=== PATIENT | male | born 1965 | race Caucasian/White ===

== ENCOUNTER 2023-08-08 07:09 | Outpatient (OUT) | payer OTHER, SELFPAY ==
[2023-08-08 08:03] LABS: Chol HDL Ratio 4.5; Cholesterol 202 mg/dL (<=200); HDL Cholesterol 45 mg/dL (40-60); Triglycerides 189 mg/dL (<=150); VLDL CHOLESTEROL 37.8 mg/dL
== END 2023-08-08 07:10 | disposition home or self-care (01) ==
LOC: LAB 07:09
PROVIDERS: PCP Family Medicine; Visit Provider Family Medicine
DX: Z79.899 Other long term (current) drug therapy (principal); E78.2 Mixed hyperlipidemia; Z83.49 Family history of other endocrine, nutritional and metabolic diseases
CPT/HCPCS: 36415; 80061

== ENCOUNTER 2023-11-18 15:25 | Outpatient (OUT) | payer OTHER, SELFPAY ==
[2023-11-18 16:17] LABS: Alanine Aminotransferase 49 U/L (16-63); Albumin Globulin Ratio 0.8; Albumin Level 3.8 g/dL (3.4-5.0); Alkaline Phosphatase 63 U/L (46-116); Aspartate Amino Transferase 23 U/L (15-37); Bilirubin Direct 0.2 mg/dL (0.0-0.2); Bilirubin Total 0.6 mg/dL (0.2-1.0); Chol HDL Ratio 2.8; Cholesterol 151 mg/dL (<=200); Globulin 4.5 g/dL; HDL Cholesterol 54 mg/dL (40-60); Total Protein 8.3 g/dL (6.4-8.2); Triglycerides 80 mg/dL (<=150)
== END 2023-11-18 15:26 | disposition home or self-care (01) ==
LOC: LAB 15:26
PROVIDERS: PCP Family Medicine; Visit Provider Family Medicine
DX: E78.2 Mixed hyperlipidemia (principal); Z83.49 Family history of other endocrine, nutritional and metabolic diseases; Z79.899 Other long term (current) drug therapy
CPT/HCPCS: 36415; 80061; 80076

== ENCOUNTER 2024-03-11 15:31 | Outpatient (OUT) | payer OTHER, SELFPAY ==
[2024-03-11 15:47] LABS: Basophils Absolute Auto 0.1 10^3/uL (0.0-0.1); Basophils Percent Auto 1.5 % (0.2-2.0); Eosinophils Absolute Auto 0.2 10^3/uL (0.0-0.7); Eosinophils Percent Auto 2.9 % (0.9-7.0); Hemoglobin 14.1 g/dL (14.0-18.0); Lymphocytes Absolute Auto 1.1 10^3/uL (1.2-3.8); Lymphocytes Percent Auto 22.1 % (20.5-60.0); Mean Corpuscular HGB Conc 34.4 g/dL (29.9-35.2); Mean Corpuscular Hemoglobin 31.3 pg (25.9-34.0); Mean Corpuscular Volume 90.9 fL (80.0-94.0); Mean Platelet Volume 10.3 fL (9.5-13.5); Monocytes Absolute Auto 0.6 10^3/uL (0.3-0.8); Monocytes Percent Auto 12.4 % (1.7-12.0); Neutrophils Absolute Auto 3.2 10^3/uL (1.4-6.5); Neutrophils Percent Auto 61.1 % (43.0-75.0); Platelet Count 226 10^3/uL (150-450); Red Blood Count 4.51 10^6/uL (4.70-6.10); White Blood Count 5.2 10^3/uL (4.0-11.0)
[2024-03-11 16:43] LABS: Alanine Aminotransferase 33 U/L (16-63); Albumin Level 4.1 g/dL (3.4-5.0); Alkaline Phosphatase 59 U/L (46-116); Anion Gap 12.3; Aspartate Amino Transferase 21 U/L (15-37); BUN Creatinine Ratio 16.4; Bilirubin Total 0.9 mg/dL (0.2-1.0); Calcium 9.4 mg/dL (8.5-10.1); Carbon Dioxide 26.5 mmol/L (21.0-32.0); Chloride 101 mmol/L (98-107); Chol HDL Ratio 2.4; Cholesterol 134 mg/dL (<=200); Estimated GFR (African America >60 (>=60); Estimated GFR (Non-African Ame >60 (>=60); Glucose 87 mg/dL (74-106); HDL Cholesterol 57 mg/dL (40-60); LDL Cholesterol Calculated 65.8 mg/dL; Potassium 3.8 mmol/L (3.5-5.1); Sodium 136 mmol/L (136-145); Total Protein 8.1 g/dL (6.4-8.2); Triglycerides 56 mg/dL (<=150); VLDL CHOLESTEROL 11.2 mg/dL
[2024-03-11 17:00] LABS: Prostate Specific Antigen Scrn 0.27 ng/mL (<=4.00)
== END 2024-03-11 15:32 | disposition home or self-care (01) ==
LOC: LAB 15:31
PROVIDERS: PCP Family Medicine; Visit Provider Family Medicine
DX: Z00.00 Encounter for general adult medical examination without abnormal findings (principal); Z12.5 Encounter for screening for malignant neoplasm of prostate
CPT/HCPCS: 36415; 80053; 80061; 85025; G0103

== ENCOUNTER 2025-04-06 07:31 | Outpatient (OUT) | payer OTHER, SELFPAY ==
--- OUTSIDE RECORDS SUMMARY | 2025-03-31 15:15 | XMS_ITS | Encounter Summary ---
Author Organization [facility] Address [address] [facility] [place] [address] Care Team Providers Care Supervisor Properties Name Role Phone Tyson Breen Primary Care Provider [phone] Reason for Visit * Reason Comments Foreign Body in Eye Encounter Details Date Type Department Care Team (Late st Contact Info) Description 03/31/2025 3:15 PM EDT Office Visit [facility] [address] [place] [id number] Thomas España DO [address] [place] [address] Foreign body of left cornea, initial encounter (Primary Dx) Social History Tobacco Use Types Packs/Day Years Used Date Smoking Tobacco: Former Cigarettes 1 15 0 10/28/1989 - 10/28/2003 Smokeless Tobacco: Never Alcohol Use Standard Drinks/Week Comments Yes 6 (1 standard drink = 0.6 oz pur e alcohol) Sex and Gender Information Value Date Recorded Sex Assigned at Not on file Legal Sex Male 7:20 PM EDT Gender Identity Not on file Sexual Orientation Not on file documented as of this encounter Progress Notes * Thomas España DO - 03/31/2025 3:15 PM EDT Images from the original note were not included. Assessment/Plan Diagnoses and all orders for this visit: Foreign body of left cornea, initial encounter - This appears to have worked its way out since seen yesterday evening by Dr. Leonardo. He showed miladys photo of this and it appears to have been an eyelash with perhaps a mucus strand holding it to the cornea. Pt reassured. Advised tears prn. documented in this encounter Plan of Treatment Not on file documented as of this encounter Visit Diagnoses Diagnosis Foreign body of left cornea, initial encounter- Primary documented in this encounter Care Teams Supervisor Properties Relationship Specialty Start Date End Date Tyson Breen [address] [place] [address] PCP - General 03/31/23 documented as of this encounter
--- OUTSIDE RECORDS SUMMARY | 2025-04-06 07:35 | XMS_ITS | Encounter Summary ---
Author Organization [facility] Address [address] [facility] [place] [address] Care Team Providers Care Evp Name Role Phone Tyson Breen Primary Care Provider [phone] Encounter Details Date Type Department Care Team (Late st Contact Info) Description 03/31/2025 Bamboo flowsheet [facility] [address] [place] [phone] Thomas España, DO [address] [place] [address] Social History Tobacco Use Types Packs/Day Years [...] on file documented as of this encounter Plan of Treatment Not on file documented as of this encounter Visit Diagnoses Not on filedocumented in this encounter Care Teams Evp Relationship Specialty Start Date End Date Tyson Breen [address] [place] [address] PCP - General 03/31/23 documented as of this encounter
--- OUTSIDE RECORDS SUMMARY | 2025-04-06 07:35 | XMS_ITS | Encounter Summary ---
Author Organization [facility] Address [address] [facility] [place] [address] Care Team Providers Care Plating Tank Operator Name Role Phone Tyson Breen Primary Care Provider [phone] Encounter Details Date Type Department Care Team (Late st Contact Info) Description 06/04/2023 Abstract [facility] [address] [facility] [place] [address] Sheila Ny, [facility] [address] [place] [address] Social History Tobacco Use Types Packs/Day Years [...] on file Sexual Orientation Not on file COVID-19 Exposure Response Date Recorded In the last 10 days, have yo u been in contact with someone who was confirmed or suspected to have Coronavirus/COVID-19? No / Unsure 05/19/2023 11:55 AM EDT documented as of this encounter Plan of Treatment Not on file documented as of this encounter Visit Diagnoses Not on filedocumented in this encounter Care Teams Plating Tank Operator Relationship Specialty Start Date End Date Tyson Breen [address] [place] [address] PCP - General 03/31/23 documented as of this encounter
--- OUTSIDE RECORDS SUMMARY | 2025-04-06 07:35 | XMS_ITS | Clinical Summary ---
Author Organization [facility] Address [address] [place] [address] Care Team Providers Care Train Master Name Role Phone Tyson Breen Primary Care Provider Allergies No known active allergies Medications amLODIPine (Norvasc) 5 MG tablet 03/06/2025 Active ofloxacin (Ocuflox) 0.3 % ophthalmic solution 03/30/2025 Active rosuvastatin (Crestor) 10 MG tablet 01/03/2025 Active Active Problems No known active problems Encounters Date Type Department Care Team Description 03/31/2025 3:15 PM EDT Office Visit [facility] [address] [place] [phone] Thomas España, DO Foreign body of left cornea, initial encounter (Primary Dx) 03/31/2025 Bamboo flowsheet [facility] [address] [place] [phone] Thomas España, 03/31/2025 Travel 03/04/2025 Telephone [facility] [address] [facility] [place] [phone] Jayashree Armstrong MA 01/07/2025 Telephone [facility] [address] [facility] [place] [phone] Jayashree Armstrong MA 01/04/2025 3:45 PM EDT Clinical Support [facility] [address] [facility] [place] [address] Sheila Ny, CCC-A Sensorineural hearing loss, bilateral (Primary Dx) 01/04/2025 Telephone [facility] [address] [facility] [place] [address] Kanwal Campos MA from Last 3 Months Immunizations Immunization Administration Dates Next Due Moderna Bivalent Booster Vaccination 09/15/2022 Zoster, Recombinant 05/25/2020,12/29/2019 Family History Medical History Relation Name Comments Cancer Father Derek lau Heart failure Father Derek lau Cancer Mother Gabby lau Stroke Mother Gabby lau Thyroid disease Mother Gabby lau Relation Name Status Comments Father Derek lau Mother Gabby lau Social History Tobacco Use Types Packs/Day Years Used Date Smoking Tobacco: Former Cigarettes 1 15 0 10/28/1989 - 10/28/2003 Smokeless Tobacco: Never Tobacco Cessation:Counseling Given: Not Answered Alcohol Use Standard Drinks/Week Comments Yes 6 (1 standard drink = 0.6 oz pur e alcohol) Sex and Gender Information Value Date Recorded Sex Assigned at Not on file Legal Sex Male 7:20 PM EDT Gender Identity Not on file Sexual Orientation Not on file Last Filed Vital Signs Vital Sign Reading Time Taken Comments Blood Pressure 143/98 04/03/2023 3:06 PM EDT Pulse - - Temperature - - Respiratory Rate - - Oxygen Saturation - - Inhaled Oxygen Concentration - - Weight 101 kg (222 lb) 04/03/2023 3:06 PM EDT Height 177.8 cm (5' 10 ) 04/03/2023 3:06 PM EDT Body Mass Index 31.85 04/03/2023 3:06 PM EDT Plan of Treatment Health Maintenance Due Date Last Done Comments CT Colonography 1966 Colonoscopy 1966 Colorectal Cancer Screening 1966 FIT-DNA 1966 FIT 1966 FOBT 1966 Sigmoidoscopy 1966 Influenza Vaccine Completed 09/10/2024 Insurance [employer] Care Teams Train Master Relationship Specialty Start Date End Date Tyson Breen [address] [place] [address] PCP - General 03/31/23
--- OUTSIDE RECORDS SUMMARY | 2025-04-06 07:35 | XMS_ITS | Encounter Summary ---
Author Organization [facility] Address [address] [facility] [place] [address] Care Team Providers Care Manager Furniture Name Role Phone Tyson Breen Primary Care Provider [phone] Encounter Details Date Type Department Care Team (Late st Contact Info) Description 06/04/2023 Abstract [facility] [address] [facility] [address] Sheila Ny, [facility] [address] [place] [address] Social History Tobacco Use Types Packs/Day Years [...] on filedocumented in this encounter Care Teams Manager Furniture Relationship Specialty Start Date End Date Tyson Breen [address] [place] [address] PCP - General 03/31/23 documented as of this encounter
--- OUTSIDE RECORDS SUMMARY | 2025-04-06 07:35 | XMS_ITS | Encounter Summary ---
Author Organization [facility] Address [address] [facility] [place] [address] Care Team Providers Care Custom Leather Products Maker Name Role Phone Tyson Breen Primary Care Provider [phone] Encounter Details Date Type Department Care Team (Late st Contact Info) Description 05/20/2023 Abstract [facility] [address] [facility] [place] [address] Sheila Ny, [facility] [address] [place] [address] Social History Tobacco Use Types Packs/Day Years [...] on filedocumented in this encounter Care Teams Custom Leather Products Maker Relationship Specialty Start Date End Date Tyson Breen [address] [place] [address] PCP - General 03/31/23 documented as of this encounter
--- OUTSIDE RECORDS SUMMARY | 2025-04-06 07:36 | XMS_ITS | CCD ---
Author Organization [facility] Inform ion Partnership [facility] Care Team Providers Care Sheriff'S Detective Name Role Phone MARICARMEN, DR PEREZ Attending Unavailable BUNTING, DR PEREZ Consulting Unavailable BUNTING, DR PEREZ Primary Care Unavailable BUNTING, DR PEREZ Admitting Unavailable Bunting, Chris Luna Primary Care Provider SHEILA [place] Attending Unavailable CLARA NG Attending Unavailable Medications Current Medications Medication Drug Class(es) Dates Sig (Normalized) Sig (Original) amLODIPine 5 mg oral tablet (1 source) Dihydropyridine Calcium Channel Suleiman Start: 03-06-2025 amLODIPine (Norvasc) 5 MG tablet 03/06/2025 Active ofloxacin 3 mg/ml ophthalmic solution (1 source) Quinolone Antimicrobial Start: 03-30-2025 ofloxacin (Ocuflox) 0.3 % ophthalmic solution 03/30/2025 Active rosuvastatin calcium 10 mg oral tablet (1 source) HMG-CoA Reductase Inhibitor Start: 01-03-2025 rosuvastatin (Crestor) 10 MG tablet 01/03/2025 Active Problems Problem Classification Problem Date Documented Date Episodic/Chronic Other ear and sense organ disorders (3 sources) Sensorineural hearing loss, bilateral; Translations: [Sensorineural hearing loss, bilateral] 08-28-2024 Chronic Other injuries and conditions due to external causes (1 source) Foreign body in left cornea; Translations: [Foreign body in cornea, left eye, initial encounter] 03-31-2025 Episodic Other non-traumatic joint disorders (1 source) Pain in unspecified joint; Translations: [PAIN IN UNSPECIFIED JOINT] Onset: 03-12-2023 Episodic Other screening for suspected conditions (not mental disorders or infectious disease) (1 source) Encounter for screening for malignant neoplasm of prostate; Translations: [ENC SCREEN MALIG NEOPLASM PROSTATE] Onset: 03-12-2023 Episodic Results Test Name Value Interpretation Reference Range Facil ity CBC AUTO DIFFon 01-10-2023 BASO # 0.1 103/ul Normal 0.0-0.1 [facility] Comment on above: Performed By: #### C BC #### [facility] [address] [address] [address] Chris Beck Basophils/100 WBC (Bld) 1.7 % Normal 0.2-2.0 [facility] Comment on above: Performed By: #### C BC #### [facility] [address] [address] [address] Chris Beck EO # 0.2 103/ul Normal 0.0-0.7 [facility] Comment on above: Performed By: #### C BC #### [facility] [address] [place] [address] Dr. Chris Beck Eosinophils/100 WBC (Bld) 3.8 % Normal 0.9-7.0 [facility] Comment on above: Performed By: #### C BC #### [facility] [address] [address] [address] Chris Beck Erythrocyte distribution width (RBC) [Ratio] 13.2 % Normal 11.0-15.0 [facility] Comment on above: Performed By: #### C BC #### [facility] [address] [place] [address] Dr. Chris Beck Hematocrit (Bld) [Volume fraction] 46.2 % Normal 42.0-54.0 [facility] Comment on above: Performed By: #### C BC #### [facility] [address] [address] [address] Chris Beck Hemoglobin (Bld) [Mass/Vol] 15.6 g/dL Normal 14.0-18.0 [facility] Comment on above: Performed By: #### C BC #### [facility] [address] [place] [address] Dr. Chris Beck IG # 0.01 10e3/ul Normal 0.00-0.03 [facility] Comment on above: Performed By: #### C BC #### [facility] [address] [place] [address] Dr. Chris Beck IG % 0.2 % Normal 0.0-0.5 [facility] Comment on above: Performed By: #### C BC #### [facility] [address] [place] [address] Dr. Chris Beck LYMPH # 1.2 103/ul Normal 1.2-3.8 [facility] Comment on above: Performed By: #### C BC #### [facility] [address] [place] [address] Dr. Chris Beck Lymphocytes/100 WBC (Bld) 22.9 % Normal 20.5-60.0 [facility] Comment on above: Performed By: #### C BC #### [facility] [address] [place] [address] Dr. Chris Beck MANUAL DIFF REQ NO Normal [facility] Comment on above: Performed By: #### C BC #### [facility] [address] [place] [address] Dr. Chris Beck MCH (RBC) [Entitic mass] 31.5 pg Normal 25.9-34.0 [facility] Comment on above: Performed By: #### C BC #### [facility] [address] [place] [address] Dr. Chris Beck MCHC (RBC) [Mass/Vol] 33.8 g/dL Normal 29.9-35.2 [facility] Comment on above: Performed By: #### C BC #### [facility] [address] [place] [address] Dr. Chris Beck MCV (RBC) [Entitic vol] 93.3 fL Normal 80.0-94.0 [facility] Comment on above: Performed By: #### C BC #### [facility] [address] [place] [address] Dr. Chris Beck MONO # 0.6 103/ul Normal 0.3-0.8 [facility] Comment on above: Performed By: #### C BC #### [facility] [address] [place] [address] Dr. Chris Beck Monocytes/100 WBC (Bld) 11.5 % Normal 1.7-12.0 [facility] Comment on above: Performed By: #### C BC #### [facility] [address] [place] [address] Dr. Chris Beck NEUT # 3.2 103/ul Normal 1.4-6.5 [facility] Comment on above: Performed By: #### C BC #### [facility] [address] [place] [address] Dr. Chris Beck Neutrophils/100 WBC (Bld) 59.9 % Normal 43.0-75.0 [facility] Comment on above: Performed By: #### C BC #### [facility] [address] [place] [address] Dr. Chris Beck Platelet mean volume (Bld) [Entitic vol] 11.1 fL Normal 9.5-13.5 [facility] Comment on above: Performed By: #### C BC #### [facility] [address] [place] [address] Dr. Chris Beck PLT 200 103/ul Normal 150-450 [facility] Comment on above: Performed By: #### C BC #### [facility] [address] [place] [address] Dr. Chris Beck RBC 4.95 106/ul Normal 4.70-6.10 [facility] Comment on above: Performed By: #### C BC #### [facility] [address] [place] [address] Dr. Chris Beck WBC 5.3 103/ul Normal 4.0-11.0 [facility] Comment on above: Performed By: #### C BC #### [facility] [address] [place] [address] Dr. Chris Beck FREE T4on 01-10-2023 Free T4 [Mass/Vol] 0.99 ng/dL Normal 0.76-1.46 [facility] Comment on above: Performed By: #### F T4, PSASC #### [facility] [address] [place], [place] [id number] Dr. Chris Beck LIPID PROFILEon 01-10-2023 CHOL-HDL RATIO NORM SEE BELOW Normal [facility] Comment on above: Result Comment: 3.3 - 4.4 LOW RISK 4.4 - 7.1 AVERAGE RISK 7.1 - 11.0 MODERATE RISK >11.0 HIGH RISK Performed By: #### T SH, CMP, LIPID #### [facility] [address] [address] [address] Chris Beck Cholesterol [Mass/Vol] 217 mg/dL Critically high <=200 [facility] Comment on above: Performed By: #### T SH, CMP, LIPID #### [facility] [address] [place] [address] Dr. Chris Beck Cholesterol in HDL [Mass/Vol] 48 mg/dL Normal 40-60 [facility] Comment on above: Performed By: #### T SH, CMP, LIPID #### [facility] [address] [place] [address] Dr. Chris Beck Cholesterol in LDL [Mass/Vol] 156.4 mg/dL Normal [facility] Comment on above: Performed By: #### T SH, CMP, LIPID #### [facility] [address] [place] [address] Dr. Chris Beck Cholesterol.total/C holesterol in HDL [Mass ratio] 4.5 {ratio} Normal [facility] Comment on above: Performed By: #### T SH, CMP, LIPID #### [facility] [address] [place] [address] Dr. Chris Beck HDL NORMAL > or = 60 mg/dl - LO W CARDIOVASCULAR RISK <40 mg/dl - HIGH CARDIOVASCULAR RISK Normal [facility] Comment on above: Performed By: #### T SH, CMP, LIPID #### [facility] [address] [place] [address] Dr. Chris Beck LDL CALC NORMAL SEE BELOW Normal [facility] Comment on above: Result Comment: <100 mg/dl OPTIMAL 100 - 129 mg/dl NEAR OR ABOVE OPTIMAL 130 - 159 mg/dl BORDERLINE HIGH 160 - 189 mg/dl HIGH >190 mg/dl VERY HIGH Performed By: #### T SH, CMP, LIPID #### [facility] [address] [address] [address] Chris Beck Triglyceride [Mass/Vol] 63 mg/dL Normal <=150 [facility] Comment on above: Performed By: #### T SH, CMP, LIPID #### [facility] [address] [address] [address] Chris Beck VLDL CALC 12.6 mg/dL Normal [facility] Comment on above: Performed By: #### T SH, CMP, LIPID #### [facility] [address] [address] [address] Chris Beck PROF 14(COMP METB)on 023 Albumin [Mass/Vol] 4.0 g/dL Normal 3.4-5.0 [facility] Comment on above: Performed By: #### T SH, CMP, LIPID #### [facility] [address] [address] [address] Chris Beck Albumin/Globulin [Mass ratio] 0.9 {ratio} Normal [facility] Comment on above: Performed By: #### T SH, CMP, LIPID #### [facility] [address] [address] [address] Chris Beck ALP [Catalytic activity/Vol] 66 U/L Normal 46-116 [facility] Comment on above: Performed By: #### T SH, CMP, LIPID #### [facility] [address] [address] [address] Chris Beck ALT [Catalytic activity/Vol] 54 U/L Normal 16-63 [facility] Comment on above: Performed By: #### T SH, CMP, LIPID #### [facility] [address] [address] [address] Chris Beck Anion gap [Moles/Vol] 8.1 mmol/L Normal [facility] Comment on above: Performed By: #### T SH, CMP, LIPID #### [facility] [address] [place] [address] Dr. Chris Beck AST [Catalytic activity/Vol] 35 U/L Normal 15-37 [facility] Comment on above: Performed By: #### T SH, CMP, LIPID #### [facility] [address] [address] [address] Chris Beck Bilirubin [Mass/Vol] 0.8 mg/dL Normal 0.2-1.0 [facility] Comment on above: Performed By: #### T SH, CMP, LIPID #### [facility] [address] [place] [address] Dr. Chris Beck Calcium [Mass/Vol] 9.0 mg/dL Normal 8.5-10.1 [facility] Comment on above: Performed By: #### T SH, CMP, LIPID #### [facility] [address] [place] [address] Dr. Chris Beck Chloride [Moles/Vol] 102 mmol/L Normal 98-107 [facility] Comment on above: Performed By: #### T SH, CMP, LIPID #### [facility] [address] [place] [address] Dr. Chris Beck CO2 [Moles/Vol] 26.8 mmol/L Normal 21.0-32.0 [facility] Comment on above: Performed By: #### T SH, CMP, LIPID #### [facility] [address] [place] [address] Dr. Chris Beck Creatinine [Mass/Vol] 0.93 mg/dL Normal 0.70-1.30 [facility] Comment on above: Performed By: #### T SH, CMP, LIPID #### [facility] [address] [place] [address] Dr. Chris Beck EGFR-AF SOMALI >60 Normal >=60 [facility] Comment on above: Performed By: #### T SH, CMP, LIPID #### [facility] [address] [place] [address] Dr. Chris Beck EGFR-NON AF SOMALI >60 Normal >=60 [facility] Comment on above: Performed By: #### T SH, CMP, LIPID #### [facility] [address] [place] [address] Dr. Chris Beck Globulin (S) [Mass/Vol] 4.3 g/dL Normal [facility] Comment on above: Performed By: #### T SH, CMP, LIPID #### [facility] [address] [address] [address] Chris Beck Glucose [Mass/Vol] 89 mg/dL Normal 74-106 [facility] Comment on above: Performed By: #### T SH, CMP, LIPID #### [facility] [address] [address] [address] Chris Beck Potassium [Moles/Vol] 3.9 mmol/L Normal 3.5-5.1 [facility] Comment on above: Performed By: #### T SH, CMP, LIPID #### [facility] [address] [place] [address] Dr. Chris Beck Protein [Mass/Vol] 8.3 g/dL Critically high 6.4-8.2 [facility] Comment on above: Performed By: #### T SH, CMP, LIPID #### [facility] [address] [place] [address] Dr. Chris Beck Sodium [Moles/Vol] 133 mmol/L Critically low 136-145 [facility] Comment on above: Performed By: #### T SH, CMP, LIPID #### [facility] [address] [place] [address] Dr. Chris Beck Urea nitrogen [Mass/Vol] 19.0 mg/dL Critically high 7.0-18.0 [facility] Comment on above: Performed By: #### T SH, CMP, LIPID #### [facility] [address] [place] [address] Dr. Chris Beck Urea nitrogen/Creatinine [Mass ratio] 20.4 mg/mg [facility] Comment on above: Performed By: #### T SH, CMP, LIPID #### [facility] [address] [place] [address] Dr. Chris Beck TSHon 01-10-2023 TSH 2.690 uIU/mL Normal 0.358-3.740 [facility] Comment on above: Performed By: #### T SH, CMP, LIPID #### [facility] [address] [address] [address] Chris Beck Encounters Encounter Date Encounter Type Care Provider Facility Start: 03-31-2025 End: 03-31-2025 Office outpatient new 30 minutes Clara Ng DO Work Phone: [facility] Comment on above: Foreign body of left cornea, initial encounter (Primary Dx) Start: 03-31-2025 End: 03-31-2025 ambulatory CLARA NG Not Available Start: 03-31-2025 End: 03-31-2025 Bamboo flowsheet lCara Ng DO Work Phone: [facility] Start: 03-31-2025 End: 03-31-2025 Bamboo flowsheet Clara Ng DO Work Phone: [facility] Start: 01-04-2025 End: 01-04-2025 Clinical Support Sheila Ny [facility] Work Phone: [facility] Comment on above: Sensorineural hearin g loss, bilateral (Primary Dx) Start: 08-28-2024 End: 08-28-2024 ambulatory SHEILA NY Not Available Start: 08-28-2024 End: 08-28-2024 Patient encounter procedure [facility] - Jayashree Armstrong [facility] Comment on above: Sensorineural hearin g loss, bilateral (Primary Dx) Start: 03-12-2023 Encounter for genera l adult medical examination without abnormal findings DR CHRIS HERNADEZ [facility] Start: 01-10-2023 End: 01-11-[address] CHRIS HERNADEZ Facility:[facility] Start: 01-10-2023 End: 01-11-2023 Encounter for general adult medical examination without abnormal findings DR CHRIS HERNADEZ Facility:[facility] Procedures Date Procedure Procedure Detail Performing Clinician Start: 01-10-[address] CHRIS HERNADEZ Comment on above: Performed By: #### F T4, PSASC #### [facility] [address] [address] [address] Chris Beck Plan of Treatment Date Care Activity Detail Author Start: 03-31-2025 End: 03-31-2025 Patient encounter procedure 03/31/2025 3:15 PM EDT Office Visit [facility] [address] [place] [phone] Clara Ng DO [address] [place] [address] Arrived [facility] Comment on above: Arrived Start: 06-28-2024 Influenza vaccination Influenza Vacc ine (#1) [facility] Start: 1965 Screening for malign ant neoplasm of colon [facility] Immunizations Immunization Date Immunization Notes Care Provider Fa cility 09-15-2022 Moderna Bivalent Matos ster Vaccination [facility] 05-25-2020 zoster vaccine recombinant Noms Dodr [facility] 12-29-2019 zoster vaccine recombinant Noms Dodr [facility] Payers Date Payer Category Payer Unknown [id number] 2023 Unknown [id number] 2022 Private Health Insurance [employer] [id number] 1966 Unknown [id number] 1966 Unknown [id number] 1966 Unknown [id number] 1966 Unknown [id number] 1959 Unknown [id number] 1959 Unknown [id number] Social History Date Type Detail Facility Start: 04-03-2023 Tobacco smoking stat [facility] Ex-smoker [facility] Start: 10-28-1989 End: 10-28-2003 History of tobacco use Current smoker [facility] Start: 10-28-1989 End: 10-28-2003 History of tobacco use Cigarette Smoker [facility] Start: 04-03-2023 End: 03-31-2025 Cigarettes smoked current (pack per day) - Reported 1 [facility] Start: 04-03-2023 Tobacco use and exposure Smoke less tobacco non-user [facility] Start: 04-03-2023 End: 03-31-2025 Alcoholic beverage intake Current drinker of alcohol (finding) [facility] Start: 04-03-2023 Tobacco use panel [facility] Start: 1965 Sex assigned at Not on file [facility] History of Present illness Narrative 03-31-2025 Clara Ng DO - 03/31/2025 3:15 PM EDT Note Date & Type Note Facility 03-31-2025 History of Presen t illness Narrative Images from the original note were not included. Assessment/Plan Diagnoses and all orders for this visit: Foreign body of left cornea, initial encounter - This appears to have worked its way out since seen yesterday evening by Dr. Leonardo. He showed me a photo of this and it appears to have been an eyelash with perhaps a mucus strand holding it to the cornea. Pt reassured. Advised tears prn. documented in this encounter [facility] History of Present illness Narrative 01-04-2025 DARIUSZ Wilkerson - 01/04/2025 3:45 PM EDT Note Date & Type Note Facility 01-04-2025 History of Presen t illness Narrative Pt picked up supplies. documented in this encounter [facility] History of Present illness Narrative 08-28-2024 Jayashree Armstrong MA - 08/28/2024 1:45 PM EDT Note Date & Type Note Facility 08-28-2024 History of Presen t illness Narrative Patient picked up hearing aid supplies. Patient paid $40 for supplies Cosigned by DARIUSZ Wilkerson at 08/28/2024 3:53 PM EDT documented in this encounter [facility] Evaluation note Note Date & Type Note Facility Evaluation note Diagnosis Sensorineural hearing loss, bilateral- Primary documented in this encounter [facility] Evaluation note Note Date & Type Note Facility Evaluation note Diagnosis Foreign body of left cornea, initial encounter- Primary documented in this encounter [facility] Summary Purpose Family History No Family History Records FoundNo Family History Records Found Advance Directives No Advanced Directives Records FoundNo Advanced Directives Records Found Additional Source Comments (unrecognized sect ion and content) No Status Records FoundNo Status Records Found INFORMATION SOURCE (unrecogn ized section and content) DATE CREATED AUTHOR 03/13/2023 [facility] DATE CREATED AUTHOR 'S ORGANJESSICA ATION 04/01/2025 [facility] dical Specialists EPIC Care Teams (unrecognized sec tion and content) Sheriff'S Detective Relationship Specialty Start Date End Date Chris Hernadez [address] [place] [address] PCP - General 03/31/23 Sheriff'S Detective Relationship Specialty Start Date End Date Chris Hernadez [address] [place] [address] PCP - General 03/31/23 Reason for Visit (unrecogniz ed section and content) Reason Comments Foreign Body in Eye FOR RECORDS PERTAINING TO PATIENTS WHO ARE OR HAVE BEEN ENROLLED IN A CHEMICAL DEPENDENCY/SUBSTANCEABUSE PROGRAM, SOME INFORMATION MAY BE OMITTED. This clinical summary was aggregated from multiple sources. Caution should be exercised in using it in the provision of clinical care. This summary normalizes information from multiple sources, and as a consequence, information in this document may materially change the coding, format and clinical context of patient data. In addition, data may be omitted in some cases. CLINICAL DECISIONS SHOULD BE BASED ON THE PRIMARY CLINICAL RECORDS. [facility] [employer] [facility]. provides no warranty or guarantee of the accuracy or completeness of information in this document.
--- OUTSIDE RECORDS SUMMARY | 2025-04-06 07:36 | XMS_ITS | Encounter Summary ---
Author Organization [facility] Address [address] [place] [address] Care Team Providers Care Ear Specialist Name Role Phone Tyson Breen Primary Care Provider [phone] Encounter Details Date Type Department Care Team (Late st Contact Info) Description 03/28/2023 Abstract [facility] [address] [place] [phone] Sheila Ny, [facility] [address] [place] [address] Social History Tobacco Use Types Packs/Day Years Used Date Smoking Tobacco: Never Assessed Sex and Gender Information Value Date Recorded Sex Assigned at Not on file Legal Sex Male 7:20 PM EDT Gender Identity Not on file Sexual Orientation Not on file COVID-19 Exposure Response Date Recorded In the last 10 days, have yo u been in contact with someone who was confirmed or suspected to have Coronavirus/COVID-19? No / Unsure 03/31/2023 4:23 PM EDT documented as of this encounter Plan of Treatment Not on file documented as of this encounter Visit Diagnoses Not on filedocumented in this encounter Care Teams Ear Specialist Relationship Specialty Start Date End Date Tyson Breen [address] [place] [address] PCP - General 03/31/23 documented as of this encounter
--- OUTSIDE RECORDS SUMMARY | 2025-04-06 07:36 | XMS_ITS | Encounter Summary ---
Author Organization [facility] Address [address] [place] [address] Care Team Providers Care Experience Design Director Name Role Phone Tyson Breen Primary Care Provider [phone] Encounter Details Date Type Department Care Team (Latest Contact Info) Description 03/31/2025 Travel Social History Tobacco Use Types Packs/Day Years [...] on filedocumented in this encounter Care Teams Experience Design Director Relationship Specialty Start Date End Date Tyson Breen [address] [facility] [facility] [place] [address] PCP - General 03/31/23 documented as of this encounter
[2025-04-06 08:34] LABS: Alanine Aminotransferase 46 U/L (16-63); Albumin Globulin Ratio 1.1; Albumin Level 4.1 g/dL (3.4-5.0); Alkaline Phosphatase 68 U/L (46-116); Anion Gap 12.4; Aspartate Amino Transferase 24 U/L (15-37); Bilirubin Total 0.7 mg/dL (0.2-1.0); Calcium 8.9 mg/dL (8.5-10.1); Carbon Dioxide 29.9 mmol/L (21.0-32.0); Chloride 102 mmol/L (98-107); Chol HDL Ratio 2.7; Cholesterol 150 mg/dL (<=200); Estimated GFR (African America >60 (>=60 mL/min/1.73m^2); Estimated GFR (Non-African Ame >60 (>=60 mL/min/1.73m^2); Globulin 3.7 g/dL; Glucose 110 mg/dL (74-106); HDL Cholesterol 56 mg/dL (40-60); LDL Cholesterol Calculated 79.4 mg/dL; Potassium 4.3 mmol/L (3.5-5.1); Sodium 140 mmol/L (136-145); Total Protein 7.8 g/dL (6.4-8.2); Triglycerides 73 mg/dL (<=150); VLDL CHOLESTEROL 14.6 mg/dL
[2025-04-06 08:36] LABS: Prostate Specific Antigen Scrn 0.25 ng/mL (<=4.00)
== END 2025-04-06 07:32 | disposition home or self-care (01) ==
PROVIDERS: PCP Family Medicine; Visit Provider Family Medicine
DX: Z00.00 Encounter for general adult medical examination without abnormal findings (principal); Z12.5 Encounter for screening for malignant neoplasm of prostate
CPT/HCPCS: 36415; 80053; 80061; G0103